=== PATIENT | female | born 1950 | race Caucasian/White ===

== ENCOUNTER 2016-05-28 13:26 | Emergency (ER) | payer OTHER ==
[~2016-05-28] VITALS: Ht 160 cm; Wt 117.0 kg
[~2016-05-28 13:26] MED LIST: AMLODIPINE BESYL5 MG PO; APRESOLINE10 MG PO; ATIVAN0.5 MG PO; BENADRYL25 MG PO; BENICAR HCT 401 EACH PO; BRIMONIDINE TAR15 ML BOTH EARS; BUDEPRION XL300 MG PO; BUPROPION XL300 MG PO; BYSTOLIC10 MG PO; BYSTOLIC5 MG PO; Benicar PO; CATAPRES0.1 MG PO; CEFTIN500 MG PO; CELEBREX50 MG PO; CELEXA20 MG PO; CITALOPRAM HBR20 M1 PO; CLARITIN10 MG PO; CLINDAMYCIN HC300 MG PO; CLONIDINE HCL0.3 MG PO; COLACE100 MG PO; COLCRYS0.6 MG PO; Claritin,Alavart PO; DUONEB 2.5-0.5 M3 ML AEROSOL; EXTRA STRENGTH500 M1 PO; FERROUS SULFAT325 MG PO; FLOVENT 22120 INHALA IH; Flovent 220 mcg IH; HEPARIN SO5000 UNITS SC; HYDROCHLOROTHIA25 MG PO; IRON325 M1 PO; KEFLEX500 MG PO; KLONOPIN0.5 M1 PO; Levaquin PO; MUCINEX600 MG PO; MYCOSTATIN 100,60 ML PO; NASONEX17 GM BOTH NARES; NOVOLOG PE100 UNITS/ SC; PEPCID20 MG PO; PREDNISONE10 MG PO; PREDNISONE20 MG PO; PREDNISONE50 MG PO; PRINIVIL10 MG PO; PROAIR HFA8.5 GM IH; PROTONIX40 MG PO; Proventil,Ventolin H IH; RANITIDINE HCL150 M1 PO; ROCEPHIN1 GM/50 ML IV; Relafen PO; SINGULAIR10 MG PO; SPIRIVA1 INHALATI IH; Singulair PO; TRAVATAN 0.004%5 ML BOTH EYES; TRAVATAN Z5 ML BOTH EYES; TYLENOL EXTRA500 MG PO; Tylenol Regular Stre PO; ULORIC40 MG PO; ULTRAM50 MG PO; VITAMIN D PO; VITAMIN D1000 UNIT PO; VITAMIN D2000 INTUN PO; VITAMIN D2000 UNIT PO; WELLBUTRIN XL300 MG PO; XALATAN2.5 ML BOTH EYES; ZANTAC150 M1 PO; ZITHROMAX250 MG PO; ZITHROMAX500 MG PO; Zithromax PO; [UNRECOGNIZED DRUG - OTHER] PO
[2016-05-28 17:08] LABS: HEMATOCRIT 36.2 % (36.0-46.0); MCH 28.2 PG (29.0-34.0); MCHC 31.5 G/DL (30.0-36.0); MCV 89.6 FL (83-99); MEAN PLAT.VOLUME 9.3 uM^3 (9.5-12.4); PLATELET COUNT 379 K/uL (156-360); RBC DIS.WIDTH-SD 41.6 % (39-53); RED BLOOD COUNT 4.04 M/uL (3.80-5.20); WHITE BLOOD COUNT 9.1 K/uL (4.1-10.2)
[2016-05-28 17:19] LABS: CHLORIDE 100 mEq/L (99-109); POTASSIUM 4.1 mEq/L (3.7-5.4); SODIUM 141 mEq/L (136-147)
[2016-05-28 17:20] LABS: GLUCOSE 95 mg/dL (70-99)
[2016-05-28 17:22] LABS: ANION GAP 14 MEQ/L (2-14)
[2016-05-28 17:24] LABS: GFR ESTIMATE (CALCULATED) 40 mL/min/
[2016-05-28 17:25] LABS: UREA NITROGEN (BUN) 23 mg/dL (9-23)
[2016-05-28 17:49] VITALS: BP 129/57
== END 2016-05-28 17:50 | disposition home or self-care (01) ==
LOC: EME 13:26
PROVIDERS: Physician Assistant
DX: S09.90XA Unspecified injury of head, initial encounter (principal); W07.XXXA Fall from chair, initial encounter
CPT/HCPCS: 70450; 80048; 81003; 85027; 93005; 99281; 99284

== ENCOUNTER 2017-04-21 11:38 | Inpatient (IN) | payer OTHER ==
[~2017-04-21] VITALS: Ht 154.9 cm; Wt 113.1 kg
[2017-04-21 12:09] LABS: BASOPHIL (%) 0.4 % (0-1); BASOPHIL COUNT 0.1 K/uL (0-0.1); EOSINOPHIL (%) 0.7 % (0-5); EOSINOPHIL COUNT 0.1 K/uL (0-0.3); HEMATOCRIT 45.3 % (36.0-46.0); IMMATURE GRANULOCYTE (%) 0.7 % (0.0-0.7); LYMPHOCYTE (%) 14.9 % (15-42); LYMPHOCYTE COUNT 2.3 K/uL (1.0-2.8); MCH 28.9 PG (29.0-34.0); MCHC 30.9 G/DL (30.0-36.0); MCV 93.4 FL (83-99); MONOCYTE (%) 6.5 % (3-12); NEUTROPHIL (%) 76.8 % (45-76); NEUTROPHIL COUNT 11.7 K/uL (1.8-6.4); PLATELET COUNT 263 K/uL (156-360); RBC DIS.WIDTH-CV 14.7 % (11.8-14.6); RBC DIS.WIDTH-SD 50.2 % (39-53); RED BLOOD COUNT 4.85 M/uL (3.80-5.20); WHITE BLOOD COUNT 15.2 K/uL (4.1-10.2)
[2017-04-21 12:16] LABS: INTER. NORMALIZED RATIO 1.1
[2017-04-21 12:18] LABS: CHLORIDE 102 mEq/L (99-109); POTASSIUM 3.8 mEq/L (3.7-5.4); PTT 25.7 SEC (25-37); SODIUM 139 mEq/L (136-147)
[2017-04-21 12:20] LABS: GLUCOSE 224 mg/dL (70-99)
[2017-04-21 12:24] LABS: CREATININE 1.6 mg/dL (0.6-1.3); GFR ESTIMATE (CALCULATED) 34 mL/min/
[2017-04-21 12:25] LABS: UREA NITROGEN (BUN) 31 mg/dL (9-23)
[2017-04-21 12:30] LABS: TROP-I INTERPRETATION NEGATIVE; TROPONIN-I 0.02 ng/mL (0.0-0.30)
[2017-04-21] MEDS ORDERED: CELEXA10 MG PO (13:50)
[2017-04-21] MEDS ORDERED: WELLBUTRIN XL150 MG PO (13:51)
[2017-04-21] MEDS ORDERED: ULORIC80 MG PO (13:52)
[2017-04-21] MEDS ORDERED: BYSTOLIC5 MG PO (13:55)
[2017-04-21] MEDS ORDERED: LASIX20 MG PO (13:55)
[2017-04-21] MEDS ORDERED: ATIVAN0.5 MG PO (13:56)
[2017-04-21] MEDS ORDERED: SINGULAIR10 MG PO (13:56)
[2017-04-21] MEDS ORDERED: PROCARDIA XL30 MG PO (13:57)
[2017-04-21] MEDS ORDERED: GOLD BOND ULT D96 GM TP (13:57)
[2017-04-21] MEDS ORDERED: AVAPRO150 MG PO (13:57)
[2017-04-21] MEDS ORDERED: KEFLEX500 MG PO (13:58)
[2017-04-21] MEDS ORDERED: PREDNISONE10 MG PO ×2 (13:59→14:00)
[2017-04-21] MEDS ORDERED: COLACE100 MG PO (14:01)
[2017-04-21 17:00] VITALS: BP 177/79
[2017-04-21 19:31] VITALS: BP 144/64
[2017-04-21 23:44] VITALS: BP 170/89
[2017-04-21 23:47] VITALS: BP 168/88
[2017-04-22 03:28] VITALS: BP 157/74
[2017-04-22 06:34] LABS: HEMATOCRIT 37.5 % (36.0-46.0); MCH 29.1 PG (29.0-34.0); MCHC 31.5 G/DL (30.0-36.0); MCV 92.4 FL (83-99); PLATELET COUNT 210 K/uL (156-360); RED BLOOD COUNT 4.06 M/uL (3.80-5.20); WHITE BLOOD COUNT 8.1 K/uL (4.1-10.2)
[2017-04-22 06:36] LABS: HEMOGLOBIN 11.8 G/DL (11.9-15.5)
[2017-04-22 06:55] LABS: CHLORIDE 99 MEQ/L (99-109); GLUCOSE 163 mg/dL (70-99); POTASSIUM 4.4 MEQ/L (3.7-5.4); SODIUM 138 MEQ/L (136-147); UREA NITROGEN (BUN) 30 mg/dL (9-23)
[2017-04-22 06:58] LABS: CREATININE 1.1 MG/DL (0.6-1.3); GFR ESTIMATE (CALCULATED) 53 mL/min/
[2017-04-22 07:17] VITALS: BP 128/64
[2017-04-22 11:29] VITALS: BP 130/68
[2017-04-22 15:50] VITALS: BP 132/70
[2017-04-22 19:30] VITALS: BP 132/63
[2017-04-23] VITALS (7 sets, daily range): BP systolic 120–131; BP diastolic 70–84
[2017-04-23 09:37] LABS: CHLORIDE 100 mEq/L (99-109); POTASSIUM 4.1 mEq/L (3.7-5.4); SODIUM 139 mEq/L (136-147)
[2017-04-23 09:38] LABS: GLUCOSE 167 mg/dL (70-99)
[2017-04-23 09:42] LABS: CREATININE 1.3 mg/dL (0.6-1.3); GFR ESTIMATE (CALCULATED) 44 mL/min/
[2017-04-23 09:43] LABS: UREA NITROGEN (BUN) 33 mg/dL (9-23)
[2017-04-24 03:20] VITALS: BP 132/70
[2017-04-24 07:34] VITALS: BP 131/60
[2017-04-24 09:18] LABS: CHLORIDE 99 MEQ/L (99-109); CREATININE 1.1 MG/DL (0.6-1.3); GFR ESTIMATE (CALCULATED) 53 mL/min/; GLUCOSE 151 mg/dL (70-99); POTASSIUM 4.2 MEQ/L (3.7-5.4); SODIUM 140 MEQ/L (136-147); UREA NITROGEN (BUN) 39 mg/dL (9-23)
[2017-04-24 16:00] VITALS: BP 138/63
[2017-04-24 20:12] VITALS: BP 124/61
[2017-04-24 23:02] VITALS: BP 130/72
[2017-04-25 03:35] VITALS: BP 119/70
[2017-04-25 08:00] VITALS: BP 148/58
[2017-04-25 11:42] VITALS: BP 142/78
[2017-04-25 15:30] VITALS: BP 138/76
[2017-04-25 20:45] VITALS: BP 165/74
[2017-04-25 23:35] VITALS: BP 170/76
[2017-04-26 03:57] VITALS: BP 145/74
[2017-04-26 08:36] VITALS: BP 128/70
[2017-04-26 16:43] VITALS: BP 155/80
[2017-04-26 19:00] VITALS: BP 160/70
[2017-04-26 23:58] VITALS: BP 160/70
[2017-04-27 06:11] LABS: HEMATOCRIT 39.1 % (36.0-46.0); HEMOGLOBIN 12.4 G/DL (11.9-15.5); MCH 28.8 PG (29.0-34.0); MCHC 31.7 G/DL (30.0-36.0); MCV 90.7 FL (83-99); PLATELET COUNT 213 K/uL (156-360); RBC DIS.WIDTH-CV 14.3 % (11.8-14.6); RBC DIS.WIDTH-SD 48.5 % (39-53); RED BLOOD COUNT 4.31 M/uL (3.80-5.20); WHITE BLOOD COUNT 7.3 K/uL (4.1-10.2)
[2017-04-27 06:34] VITALS: BP 150/75
[2017-04-27 06:43] LABS: CHLORIDE 99 MEQ/L (99-109); CREATININE 1.1 MG/DL (0.6-1.3); GFR ESTIMATE (CALCULATED) 53 mL/min/; GLUCOSE 166 mg/dL (70-99); POTASSIUM 4.1 MEQ/L (3.7-5.4); SODIUM 140 MEQ/L (136-147); UREA NITROGEN (BUN) 40 mg/dL (9-23)
[2017-04-27 14:55] VITALS: BP 173/81
[2017-04-27 23:50] VITALS: BP 140/70
[2017-04-28 07:05] VITALS: BP 142/64
[2017-04-28] MEDS ORDERED: SPIRIVA RESPIMAT4 GM IH (10:04)
[2017-04-28] MEDS ORDERED: MUCINEX600 MG PO (10:04)
[2017-04-28] MEDS ORDERED: BENZONATATE100 MG PO (10:04)
[2017-04-28] MEDS ORDERED: PREDNISONE10 MG PO (10:04)
== END 2017-04-28 14:28 | disposition home health service (06) | DRG 194 ==
LOC: EME 11:38 → ENRESERV 13:40 → EDOF 13:40 → 2EAST 13:40 → ENRESERV 14:21 → 2EAST 16:50
PROVIDERS: Emergency Medicine; Hospitalist; Internal Medicine; Student in an Organized Health Care Education/Training Program
DX: J10.00 Influenza due to other identified influenza virus with unspecified type of pneumonia (principal); J10.1 Influenza due to other identified influenza virus with other respiratory manifestations; J44.1 Chronic obstructive pulmonary disease with (acute) exacerbation; J44.0 Chronic obstructive pulmonary disease with (acute) lower respiratory infection; R00.0 Tachycardia, unspecified; I12.9 Hypertensive chronic kidney disease with stage 1 through stage 4 chronic kidney disease, or unspecified chronic kidney disease; N18.2 Chronic kidney disease, stage 2 (mild); K21.9 Gastro-esophageal reflux disease without esophagitis; M10.9 Gout, unspecified; F41.9 Anxiety disorder, unspecified; F32.9 Major depressive disorder, single episode, unspecified; G43.909 Migraine, unspecified, not intractable, without status migrainosus; E66.9 Obesity, unspecified; Z68.42 Body mass index [BMI] 45.0-49.9, adult; Z87.891 Personal history of nicotine dependence; Z99.81 Dependence on supplemental oxygen; Z88.1 Allergy status to other antibiotic agents
CPT/HCPCS: 71045; 71046; 80048; 84484; 85025; 85027; 85610; 85730; 87040; 87449; 87502; 93005; 94640; 94640 76; 94644; 94760; 94799; 99202; 99281; 99285; J0456; J0696; J1200; J1644; J2930; J7030; J7512; J7644